=== PATIENT | female | born 1945 | race African-American/Black ===

== ENCOUNTER 2016-12-17 13:53 | Inpatient (IN) | payer MEDICARE, OTHER ==
[~2016-12-17] VITALS: Ht 167.6 cm; Wt 94.9 kg
[2016-12-17 15:09] LABS: BASOPHILS % 0.5 % (0.0-2.0); HEMOGLOBIN. 12.5 g/dL (12.0-16.0); LYMPHOCYTES % 15.4 % (20.0-50.0); MEAN CORPUSCULAR HEMOGLOBIN 25.5 pg (28.0-32.0); MEAN CORPUSCULAR VOLUME 77.7 fL (81.0-99.0); MEAN PLATELET VOLUME 8.6 fl (7.4-10.4); MONOCYTES % 7.8 % (2.0-8.0); NEUTROPHILS % 74.3 % (40.0-76.0); PLATELET 235 x1000/uL (130-400); RED BLOOD CELL COUNT 4.89 mill/uL (4.2-5.4); RED CELL DISTRIBUTION WIDTH 17.2 % (11.6-14.6)
[2016-12-17 15:14] LABS: INR 1.1; PROTHROMBIN TIME 11.2 sec
[2016-12-17 15:17] LABS: CARBON DIOXIDE 33 mEq/L (21-32); CHLORIDE 102 mEq/L (98-107)
[2016-12-17 15:24] LABS: TROPONIN I 0.02 ng/mL (0.00-0.04)
[2016-12-17] MEDS ORDERED: POTASSIUM CHLORIDE 20MEQ TABLET SR PO ONE (15:45)
[2016-12-17] MEDS ORDERED: ASPIRIN 81MG TABLET PO ONE (19:00)
[2016-12-17 21:15] VITALS: BP 185/109
[2016-12-17 21:30] VITALS: BP 185/109
[2016-12-17] MEDS ORDERED: PNEUMOCOCCAL 23-VAL P-SAC VAC 0.5 ML IM ONE (22:45)
[2016-12-17] MEDS: FUROSEMIDE 40MG TABLET PO SCH (23:11)
[2016-12-17] MEDS: AMLODIPINE 10MG TABLET PO SCH (23:12)
[2016-12-17 23:34] LABS: BASOPHILS % 0.5 % (0.0-2.0); EOSINOPHILS % 2.2 % (0.0-5.0); HEMATOCRIT. 40.7 % (36.0-48.0); HEMOGLOBIN. 13.4 g/dL (12.0-16.0); LYMPHOCYTES % 17.9 % (20.0-50.0); MEAN PLATELET VOLUME 8.5 fl (7.4-10.4); NEUTROPHILS % 72.4 % (40.0-76.0); PLATELET 214 x1000/uL (130-400); RED BLOOD CELL COUNT 5.14 mill/uL (4.2-5.4); RED CELL DISTRIBUTION WIDTH 17.1 % (11.6-14.6)
[2016-12-17 23:54] LABS: CARBON DIOXIDE 34 mEq/L (21-32); CHLORIDE 102 mEq/L (98-107)
[2016-12-17] MEDS ORDERED: ASPI-1159 PO (23:58)
[2016-12-17] MEDS ORDERED: FOLI-43 PO (23:59)
[2016-12-17] MEDS ORDERED: CHOL100046 PO (23:59)
[2016-12-18] VITALS: BP 147/99
[2016-12-18] MEDS ORDERED: GUAIFENESIN-DM 200MG-20MG/10ML UDC PO PRN
[2016-12-18] MEDS ORDERED: LORAZEPAM 2MG/ML CPJ IV PRN
[2016-12-18 04:00] VITALS: BP 160/85
[2016-12-18] MEDS: FUROSEMIDE 40MG TABLET PO SCH ×2 (06:36→17:38)
[2016-12-18 07:06] LABS: BASOPHILS % 0.6 % (0.0-2.0); EOSINOPHILS % 2.3 % (0.0-5.0); HEMATOCRIT. 39.1 % (36.0-48.0); HEMOGLOBIN. 12.7 g/dL (12.0-16.0); LYMPHOCYTES % 15.8 % (20.0-50.0); MEAN CORPUSCULAR HEMOGLOBIN 25.3 pg (28.0-32.0); MEAN CORPUSCULAR VOLUME 77.9 fL (81.0-99.0); MEAN PLATELET VOLUME 8.5 fl (7.4-10.4); MONOCYTES % 7.8 % (2.0-8.0); NEUTROPHILS % 73.5 % (40.0-76.0); PLATELET 221 x1000/uL (130-400); RED BLOOD CELL COUNT 5.02 mill/uL (4.2-5.4); RED CELL DISTRIBUTION WIDTH 17.2 % (11.6-14.6)
[2016-12-18 07:40] LABS: CARBON DIOXIDE 35 mEq/L (21-32); CHLORIDE 100 mEq/L (98-107)
[2016-12-18 08:00] VITALS: BP 154/91
[2016-12-18] MEDS ORDERED: PNEUMOCOCCAL 23-VAL P-SAC VAC 0.5 ML IM ONE (08:00)
[2016-12-18] MEDS: AMLODIPINE 10MG TABLET PO SCH (08:56)
[2016-12-18] MEDS ORDERED: ENOXAPARIN 40MG/0.4ML SYR SUBCUT SCH (09:00)
[2016-12-18 12:00] VITALS: BP 125/75
[2016-12-18] MEDS ORDERED: POTASSIUM CHLORIDE 20MEQ TABLET SR PO NR (12:00)
[2016-12-18 16:00] VITALS: BP 141/88
[2016-12-18] MEDS: MORPHINE SULFATE 2 MG/ML CPJ (NOT FOR IM USE) IV PRN (17:42)
[2016-12-18 20:00] VITALS: BP 126/74
[2016-12-18] MEDS: MAGNESIUM HYDROXIDE 400MG/5ML 30ML UDC PO PRN (20:52)
[2016-12-18] MEDS: ENOXAPARIN 30MG/0.3ML SYR SUBCUT SCH (20:53)
[2016-12-19] VITALS (7 sets, daily range): BP systolic 117–150; BP diastolic 65–87
[2016-12-19] MEDS: MORPHINE SULFATE 2 MG/ML CPJ (NOT FOR IM USE) IV PRN ×2 (00:01→21:42)
[2016-12-19] MEDS: FUROSEMIDE 40MG TABLET PO SCH ×2 (06:38→16:34)
[2016-12-19] MEDS: ENOXAPARIN 30MG/0.3ML SYR SUBCUT SCH ×2 (08:36→21:41)
[2016-12-19] MEDS: AMLODIPINE 10MG TABLET PO SCH (08:37)
[2016-12-19] MEDS ORDERED: REGADENOSON 0.4 MG/5 ML IV ONE (11:45)
[2016-12-19 16:58] LABS: CREATINE KINASE 34 IU/L (26-192); HDL CHOLESTEROL 36 mg/dL (40-59); LDL CHOLESTEROL 139 mg/dL (5-100); T4 FREE 1.02 ng/dL (0.76-1.46); TROPONIN I < 0.02 ng/mL (0.00-0.04)
[2016-12-19 17:03] LABS: CREATINE KINASE MB FRACTION 1.3 ng/mL (0.5-3.6)
[2016-12-20] VITALS: BP 132/78
[2016-12-20 01:44] LABS: CREATINE KINASE 36 IU/L (26-192); CREATINE KINASE MB FRACTION 1.1 ng/mL (0.5-3.6); TROPONIN I < 0.02 ng/mL (0.00-0.04)
[2016-12-20 04:00] VITALS: BP 140/80
[2016-12-20] MEDS: FUROSEMIDE 40MG TABLET PO SCH ×2 (06:53→17:26)
[2016-12-20 07:06] LABS: CARBON DIOXIDE 37 mEq/L (21-32); CHLORIDE 96 mEq/L (98-107)
[2016-12-20 07:13] LABS: CREATINE KINASE 28 IU/L (26-192); CREATINE KINASE MB FRACTION 0.9 ng/mL (0.5-3.6); TROPONIN I < 0.02 ng/mL (0.00-0.04)
[2016-12-20] MEDS: MORPHINE SULFATE 2 MG/ML CPJ (NOT FOR IM USE) IV PRN ×2 (09:39→22:28)
[2016-12-20] MEDS: ENOXAPARIN 30MG/0.3ML SYR SUBCUT SCH ×2 (09:39→22:12)
[2016-12-20] MEDS: AMLODIPINE 10MG TABLET PO SCH (09:39)
[2016-12-20 12:00] VITALS: BP 140/77
[2016-12-20 16:00] VITALS: BP 117/69
[2016-12-20 20:00] VITALS: BP 134/87
[2016-12-20] MEDS: MAGNESIUM HYDROXIDE 400MG/5ML 30ML UDC PO PRN (22:11)
[2016-12-21] VITALS: BP 128/83
[2016-12-21] MEDS: MORPHINE SULFATE 2 MG/ML CPJ (NOT FOR IM USE) IV PRN (02:44)
[2016-12-21 04:00] VITALS: BP 122/74
[2016-12-21 08:00] VITALS: BP 162/88
[2016-12-21] MEDS: FUROSEMIDE 40MG TABLET PO SCH (08:11)
[2016-12-21] MEDS: AMLODIPINE 10MG TABLET PO SCH (08:11)
[2016-12-21] MEDS: ENOXAPARIN 30MG/0.3ML SYR SUBCUT SCH (08:12)
[2016-12-21] MEDS ORDERED: REGADENOSON 0.4 MG/5 ML IV ONE (09:31)
[2016-12-21] MEDS ORDERED: FURO-151 PO (10:36)
[2016-12-21 12:00] VITALS: BP 130/50
[2016-12-21 12:13] LABS: BASOPHILS % 0.4 % (0.0-2.0); EOSINOPHILS % 1.9 % (0.0-5.0); HEMATOCRIT. 41.7 % (36.0-48.0); HEMOGLOBIN. 13.5 g/dL (12.0-16.0); LYMPHOCYTES % 12.3 % (20.0-50.0); MEAN CORPUSCULAR HEMOGLOBIN 25.4 pg (28.0-32.0); MEAN CORPUSCULAR VOLUME 78.5 fL (81.0-99.0); MEAN PLATELET VOLUME 9.1 fl (7.4-10.4); MONOCYTES % 6.1 % (2.0-8.0); NEUTROPHILS % 79.3 % (40.0-76.0); PLATELET 248 x1000/uL (130-400); RED BLOOD CELL COUNT 5.32 mill/uL (4.2-5.4); RED CELL DISTRIBUTION WIDTH 16.7 % (11.6-14.6)
[2016-12-21 12:19] LABS: CARBON DIOXIDE 37 mEq/L (21-32); CHLORIDE 92 mEq/L (98-107)
[2016-12-21 14:08] VITALS: BP 130/50
== END 2016-12-21 14:17 | disposition home or self-care (01) | DRG 291 ==
LOC: ER 14:28 → 5WST 15:49 → ENRESERV 19:42
PROVIDERS: ADMIT Family Medicine; ATTEND Family Medicine
DX: I11.0 Hypertensive heart disease with heart failure (principal); I50.31 Acute diastolic (congestive) heart failure; E43 Unspecified severe protein-calorie malnutrition; E87.6 Hypokalemia; E11.9 Type 2 diabetes mellitus without complications; E78.00 Pure hypercholesterolemia, unspecified; E78.5 Hyperlipidemia, unspecified; M06.9 Rheumatoid arthritis, unspecified; Z82.49 Family history of ischemic heart disease and other diseases of the circulatory system; Z88.9 Allergy status to unspecified drugs, medicaments and biological substances; Z88.0 Allergy status to penicillin; Z88.6 Allergy status to analgesic agent; Z90.710 Acquired absence of both cervix and uterus
CPT/HCPCS: 36415; 71010; 78452; 80048; 80053; 80061; 82550; 82553; 83036; 83880; 84439; 84443; 84484; 85025; 85379; 85610; 90732; 93005; 93017; 93306; 93970; 99285; A9500; J1650; J2270; J2785

== ENCOUNTER 2018-05-21 15:08 | Inpatient (IN) | payer MEDICARE ==
[~2018-05-21] VITALS: Ht 167.6 cm; Wt 99.8 kg
[~2018-05-21 15:08] MED LIST: ASPI-1159 PO; DOXA2TAB2 PO; FURO-151 PO; IBUP-2030 PO; LOSA100T14 PO; METO-396 PO
[2018-05-21] MEDS ORDERED: KETOROLAC 30MG/ML VIAL IV ONE (15:45)
[2018-05-21 16:10] LABS: BASOPHILS % 0.4 % (0.0-2.0); EOSINOPHILS % 2.5 % (0.0-5.0); HEMATOCRIT. 36.7 % (36.0-48.0); HEMOGLOBIN. 11.9 g/dL (12.0-16.0); LYMPHOCYTES % 14.5 % (20.0-50.0); MEAN CORPUSCULAR HEMOGLOBIN 25.7 pg (28.0-32.0); MEAN CORPUSCULAR VOLUME 78.9 fL (81.0-99.0); MEAN PLATELET VOLUME 8.5 fl (7.4-10.4); MONOCYTES % 8.2 % (2.0-8.0); NEUTROPHILS % 74.4 % (40.0-76.0); PLATELET 235 x1000/uL (130-400); RED BLOOD CELL COUNT 4.65 mill/uL (4.2-5.4); RED CELL DISTRIBUTION WIDTH 17.2 % (11.6-14.6)
[2018-05-21 17:03] LABS: CHLORIDE 98 mEq/L (98-107)
[2018-05-21] MEDS ORDERED: KCL 20MEQ/100ML PREMIX 100 ML IV ONE (17:15)
[2018-05-21] MEDS ORDERED: CLONIDINE 0.2MG TABLET PO ONE (18:00)
[2018-05-21] MEDS ORDERED: FUROSEMIDE 20MG TABLET PO ONE (19:00)
[2018-05-21 20:21] LABS: CLARITY URINE CLEAR (CLEAR); COLOR URINE YELLOW (YELLOW); KETONES URINE TRACE (NEGATIVE); LEUKOCYTE ESTERASE URINE 1+ (NEGATIVE); NITRITE URINE NEGATIVE (NEGATIVE); OCCULT BLOOD URINE NEGATIVE (NEGATIVE); PROTEIN URINE 1+ (NEGATIVE)
[2018-05-21 20:47] LABS: *AMPHETAMINES SCREEN URINE NEGATIVE (NEGATIVE); *BARBITURATES SCREEN URINE NEGATIVE (NEGATIVE); *BENZODIAZEPINES SCREEN URINE NEGATIVE (NEGATIVE); *COCAINE SCREEN URINE NEGATIVE (NEGATIVE); METHADONE URINE SCREEN NEGATIVE (NEGATIVE); OPIATES URINE SCREEN NEGATIVE (NEGATIVE); PHENCYCLIDINE URINE SCREEN NEGATIVE (NEGATIVE)
[2018-05-21 20:48] LABS: CANNABINOID URINE SCREEN NEGATIVE (NEGATIVE)
[2018-05-21 21:45] VITALS: BP 136/70
[2018-05-21 22:00] VITALS: BP 136/70
[2018-05-21] MEDS ORDERED: POTASSIUM CHLORIDE 20MEQ TABLET SR PO SCH (23:31)
[2018-05-22] VITALS: BP 147/75
[2018-05-22] MEDS: ACETAMINOPHEN 325MG TABLET PO PRN ×2 (01:46→18:40)
[2018-05-22] MEDS ORDERED: TEMAZEPAM 15MG CAPSULE PO PRN ×2 (02:00→21:15)
[2018-05-22 04:00] VITALS: BP 139/72
[2018-05-22] MEDS: POTASSIUM CHLORIDE 20MEQ TABLET SR PO SCH ×4 (04:35→17:52)
[2018-05-22 06:57] LABS: BASOPHILS % 0.5 % (0.0-2.0); EOSINOPHILS % 2.7 % (0.0-5.0); HEMATOCRIT. 33.4 % (36.0-48.0); HEMOGLOBIN. 10.7 g/dL (12.0-16.0); LYMPHOCYTES % 22.8 % (20.0-50.0); MEAN CORPUSCULAR HEMOGLOBIN 25.4 pg (28.0-32.0); MEAN CORPUSCULAR VOLUME 79.3 fL (81.0-99.0); MEAN PLATELET VOLUME 8.7 fl (7.4-10.4); MONOCYTES % 9.1 % (2.0-8.0); NEUTROPHILS % 64.9 % (40.0-76.0); PLATELET 203 x1000/uL (130-400); RED BLOOD CELL COUNT 4.21 mill/uL (4.2-5.4); RED CELL DISTRIBUTION WIDTH 17.5 % (11.6-14.6)
[2018-05-22 07:16] LABS: CHLORIDE 98 mEq/L (98-107)
[2018-05-22 07:28] LABS: LDL CHOLESTEROL 139 mg/dL (5-100)
[2018-05-22 07:31] LABS: CREATINE KINASE 66 IU/L (26-192); HDL CHOLESTEROL 30 mg/dL (40-59); T4 FREE 1.07 ng/dL (0.76-1.46)
[2018-05-22 07:37] LABS: CREATINE KINASE MB FRACTION 1.3 ng/mL (0.5-3.6)
[2018-05-22 08:00] VITALS: BP 130/70
[2018-05-22] MEDS: ASPIRIN 81MG TABLET PO SCH (08:39)
[2018-05-22] MEDS: ENOXAPARIN 30MG/0.3ML SYR SUBCUT SCH ×2 (08:40→21:34)
[2018-05-22] MEDS ORDERED: ENOXAPARIN 40MG/0.4ML SYR SUBCUT SCH (09:00)
[2018-05-22 12:00] VITALS: BP 114/72
[2018-05-22] MEDS ORDERED: POTASSIUM CHLORIDE 20MEQ TABLET SR PO NR (12:00)
[2018-05-22 15:20] LABS: BG BASE EXCESS 9.1 mmol/L (-2.0-2.0); BG CARBOXYHEMOGLOBIN 0.8 % (0.5-1.5); BG DEOXYHEMOGLOBIN 7.6 % (0.0-5.0); BG FRACTION INSPIRED OXYGEN 21; BG HCO3 ACT 35.2 mmol/L (22.0-26.0); BG METHEMOGLOBIN 0.4 % (0.0-1.5); BG OXYGEN SATURATION 92.3 % (92.0-98.5); BG OXYHEMOGLOBIN 91.2 % (94.0-97.0); BG PH 7.424 (7.350-7.450); BG PO2 63.5 mmHg (75.0-100.0); BG SAMPLE SITE RIGHT RADIAL; BG TOTAL HEMOGLOBIN 12.5 g/dL (12.0-18.0); BG VENT MODE ROOM AIR
[2018-05-22 16:00] VITALS: BP 116/83
[2018-05-22 19:38] LABS: CHLORIDE 100 mEq/L (98-107)
[2018-05-22 19:48] LABS: CREATINE KINASE 69 IU/L (26-192)
[2018-05-22 19:51] LABS: CREATINE KINASE MB FRACTION 1.3 ng/mL (0.5-3.6)
[2018-05-22 20:20] VITALS: BP 155/85
[2018-05-22] MEDS ORDERED: DIPHENHYDRAMINE 50MG/ML VIAL IV PRN (21:15)
[2018-05-22] MEDS ORDERED: DOCUSATE SODIUM 100MG CAPSULE PO PRN (21:15)
[2018-05-23] VITALS: BP 156/80
[2018-05-23] MEDS: METHYLPREDNISOLONE SOD SUCC 40 MG/ML VIAL IV SCH ×2 (01:04→11:04)
[2018-05-23] MEDS: LOSARTAN POTASSIUM 100 MG TABLET PO SCH ×2 (01:04→11:03)
[2018-05-23] MEDS: IPRATROPIUM/ALBUTEROL 0.5-3(2.5)MG/3ML NEB HHN SCH ×3 (01:24→14:44)
[2018-05-23 04:00] VITALS: BP 144/67
[2018-05-23] MEDS ORDERED: TRAMADOL 50MG TABLET PO PRN (06:17)
[2018-05-23 06:30] LABS: HEMATOCRIT 37.3 % (36.0-48.0); HEMOGLOBIN 11.8 g/dL (12.0-16.0); MEAN CORPUSCULAR HEMOGLOBIN 25.5 pg (28.0-32.0); MEAN CORPUSCULAR VOLUME 80.2 fL (81.0-99.0); PLATELET 226 x1000/uL (130-400); RED BLOOD CELL COUNT 4.65 mill/uL (4.2-5.4); RED CELL DISTRIBUTION WIDTH 17.7 % (11.6-14.6)
[2018-05-23 07:09] LABS: CHLORIDE 101 mEq/L (98-107)
[2018-05-23 07:23] LABS: CREATINE KINASE 63 IU/L (26-192)
[2018-05-23 07:27] LABS: CREATINE KINASE MB FRACTION 1.5 ng/mL (0.5-3.6)
[2018-05-23 08:00] VITALS: BP 158/85
[2018-05-23] MEDS: ENOXAPARIN 30MG/0.3ML SYR SUBCUT SCH (09:00)
[2018-05-23] MEDS ORDERED: FUROSEMIDE 40MG TABLET PO SCH (09:00)
[2018-05-23] MEDS: POTASSIUM CHLORIDE 20MEQ TABLET SR PO SCH (11:04)
[2018-05-23] MEDS: ASPIRIN 81MG TABLET PO SCH (11:04)
[2018-05-23 12:00] VITALS: BP 168/103
[2018-05-23] MEDS ORDERED: CLONIDINE 0.1MG TABLET PO PRN (14:30)
[2018-05-23] MEDS ORDERED: CLONIDINE 0.1MG TABLET PO NR (14:30)
[2018-05-23 16:00] VITALS: BP 123/84
[2018-05-23 17:10] VITALS: BP 123/84
[2018-05-23] MEDS ORDERED: ATORVASTATIN CALCIUM 20MG TABLET PO SCH (21:00)
== END 2018-05-23 18:24 | disposition home health service (06) | DRG 640 ==
LOC: ER 15:08 → 7WST 19:36 → EDBEDREQ 19:38 → ENRESERV 19:57
PROVIDERS: ADMIT Internal Medicine; ATTEND Internal Medicine
DX: E87.6 Hypokalemia (principal); I50.43 Acute on chronic combined systolic (congestive) and diastolic (congestive) heart failure; I11.0 Hypertensive heart disease with heart failure; R26.9 Unspecified abnormalities of gait and mobility; W19.XXXA Unspecified fall, initial encounter; Z96.653 Presence of artificial knee joint, bilateral; D64.9 Anemia, unspecified; Y93.89 Activity, other specified; Y99.8 Other external cause status; Y92.098 Other place in other non-institutional residence as the place of occurrence of the external cause; Z99.81 Dependence on supplemental oxygen; Z88.0 Allergy status to penicillin; Z88.8 Allergy status to other drugs, medicaments and biological substances; Z79.899 Other long term (current) drug therapy; Z79.82 Long term (current) use of aspirin
CPT/HCPCS: 36415; 36600; 71045; 72040; 73502; 73560; 73700; 80048; 80061; 80305; 82375; 82550; 82553; 82805; 83735; 83880; 84439; 84443; 84484; 85027; 93005; 93306; 93970; 94640; 96365; 96375; 97163; 97530; 97760; 99285; J1650; J1885; J2920; J3480; J7620; L0172; L1830

== ENCOUNTER 2019-02-28 08:53 | Emergency (ER) | payer MEDICARE ==
[~2019-02-28] VITALS: Ht 167.6 cm; Wt 89.0 kg
[~2019-02-28 08:53] MED LIST changes: -ASPI-1159 PO; +ASPI-1393 PO; -LOSA100T14 PO; +LOSA100T32 PO
[2019-02-28] MEDS ORDERED: METHYLPREDNISOLONE SOD SUCC 125 MG/2 ML VIAL IV ONE (09:45)
[2019-02-28] MEDS ORDERED: DIPHENHYDRAMINE 50MG/ML VIAL IV ONE (09:45)
[2019-02-28] MEDS ORDERED: FAMOTIDINE 20MG/2ML VIAL IV ONE (09:45)
[2019-02-28 10:59] VITALS: BP 130/89
== END 2019-02-28 10:55 | disposition home or self-care (01) ==
LOC: ER 08:53
DX: T39.1X5A Adverse effect of 4-Aminophenol derivatives, initial encounter (principal); I11.0 Hypertensive heart disease with heart failure; I50.9 Heart failure, unspecified; Z98.890 Other specified postprocedural states; Z88.0 Allergy status to penicillin; Z88.8 Allergy status to other drugs, medicaments and biological substances; Z88.6 Allergy status to analgesic agent; Z79.899 Other long term (current) drug therapy; Y92.89 Other specified places as the place of occurrence of the external cause
CPT/HCPCS: 96374; 96375; 99283; J1200; J2930; J3490

== ENCOUNTER 2023-04-27 10:25 | Emergency (ER) | payer MEDICARE ==
[~2023-04-27] VITALS: Ht 170.2 cm; Wt 82.0 kg
[~2023-04-27 10:25] MED LIST changes: -ASPI-1393 PO; +ASPI-1497 PO; -LOSA100T32 PO; +LOSA100T33 PO
[2023-04-27 10:31] VITALS: O2SAT 100
[2023-04-27 11:40] LABS: BASOPHILS % 0.3 % (0.0-2.0); DIFFERENTIAL COMMENT 0; EOSINOPHILS % 0.2 % (0.0-5.0); HEMATOCRIT. 50.8 % (36.0-48.0); HEMOGLOBIN. 15.9 g/dL (12.0-16.0); LYMPHOCYTES % 7.2 % (20.0-50.0); MEAN CORPUSCULAR HEMOGLOBIN 26.2 pg (28.0-32.0); MEAN CORPUSCULAR HGB CONC 31.3 g/dL (31.0-37.0); MEAN CORPUSCULAR VOLUME 83.7 fL (81.0-99.0); MEAN PLATELET VOLUME 8.9 fl (7.4-10.4); MONOCYTES % 4.9 % (2.0-8.0); NEUTROPHILS % 87.4 % (40.0-76.0); PLATELET 284 x1000/uL (130-400); RED BLOOD CELL COUNT 6.07 mill/uL (4.2-5.4); RED CELL DISTRIBUTION WIDTH 17.3 % (11.6-14.6); WHITE BLOOD COUNT 9.2 x1000/uL (4.5-11.0)
[2023-04-27 12:01] LABS: ALANINE AMINOTRANSFERASE < 7 IU/L (10-49); ALBUMIN 4.1 g/dL (3.2-4.8); ASPARTATE AMINOTRANSFERASE 19 IU/L (<34); BILIRUBIN TOTAL 1.5 mg/dL (0.1-1.0); CALCIUM 9.4 mg/dL (8.7-10.4); CARBON DIOXIDE 18 mEq/L (21-32); CHLORIDE 104 mEq/L (98-107); CREATININE 1.1 mg/dL (0.6-1.0); GLUCOSE 136 mg/dL (70-105); PROTEIN TOTAL 7.8 g/dL (6.0-8.3); SODIUM 139 mEq/L (136-145); UREA NITROGEN BLOOD 12 mg/dL (9-23)
[2023-04-27 12:09] LABS: TROPONIN I HIGH SENSITIVITY 56 ng/L (3.0-34)
[2023-04-27] MEDS: ASPIRIN 325MG EC TABLET PO NR (13:34)
[2023-04-27 20:07] VITALS: BP 125/74; PULSE 80; RESP 18
== END 2023-04-27 21:31 | disposition short-term general hospital (02) ==
LOC: ER 10:25
DX: T76.91XA Unspecified adult maltreatment, suspected, initial encounter (principal); R79.89 Other specified abnormal findings of blood chemistry; R51.9 Headache, unspecified; I11.0 Hypertensive heart disease with heart failure; I50.9 Heart failure, unspecified; Z88.0 Allergy status to penicillin; Z88.5 Allergy status to narcotic agent; Z88.6 Allergy status to analgesic agent; Z98.890 Other specified postprocedural states; Z79.82 Long term (current) use of aspirin; X58.XXXA Exposure to other specified factors, initial encounter
CPT/HCPCS: 36415; 71045; 72170; 80053; 83880; 84484; 85025; 93005; 99285